=== PATIENT | female | born 1970 | race Caucasian/White ===

== ENCOUNTER → 2019-02-09 07:01 | Outpatient (CLI) | payer BC, SELFPAY ==
[2019-02-09 14:22] LABS: Basophils % 0.3 % (0.1-2.0); Eosinophils # 0.2 K/mm3 (0.0-0.4); Eosinophils % 2.1 % (0.1-12.0); Hematocrit 40.9 % (37.0-47.0); Hemoglobin 13.8 g/dL (12.2-16.2); Lymphocytes # 2.9 K/mm3 (0.7-4.5); Lymphocytes % 32.5 % (10-50); Mean Corpuscular HGB Conc 33.7 g/dL (31.8-35.4); Mean Corpuscular Hemoglobin 31.7 pg (27.0-31.2); Mean Corpuscular Volume 94.1 fl (81-99); Mean Platelet Volume 8.9 fl (7.4-10.4); Monocytes # 0.6 K/mm3 (0.1-1.0); Monocytes % 6.3 % (1.7-9.3); Neutrophils # 5.2 K/mm3 (1.8-7.8); Neutrophils % 58.8 % (37.0-80.0); Platelet Count 219 K/mm3 (142-424); Red Blood Count 4.35 M/mm3 (4.20-5.40); Red Cell Distribution Width 12.1 % (11.5-17.5); White Blood Count 8.9 K/mm3 (4.8-10.8)
[2019-02-09 16:12] LABS: Alanine Aminotransferase 26 U/L (12-78); Albumin Level 3.8 gm/dL (3.4-5.0); Albumin/Globulin Ratio 1.1 (1.1-1.8); Alkaline Phosphatase 62 U/L (46-116); Anion Gap 15.9 mEq/L (5-15); Aspartate Amino Transferase 3 U/L (15-37); Bilirubin,Total 0.4 mg/dL (0.2-1.0); Blood Urea Nitrogen 17 mg/dL (7-18); Carbon Dioxide 24 mmol/L (21.0-32.0); Chloride 104 mmol/L (98-107); Creatinine,Serum 0.67 mg/dL (0.55-1.02); Estimated Glomerular Filt Rate 95 ml/min (>60); GFR (African American) 115 ML/MIN (>60); Globulin 3.6 gm/dl (1.3-3.2); Glucose 91 mg/dL (74-106); Potassium 3.9 mmoL/L (3.5-5.1); Sodium 140 mmol/L (136-145); Thyroid Stimulating Hormone 1.77 uIU/ml (0.358-3.740); Total Protein,Serum 7.4 gm/dL (6.4-8.2)
[2019-02-10 12:44] LABS: Vitamin D 25 Hydroxy 34.6 ng/mL (30.0-100.0)
[2019-02-11 07:24] LABS: Vitamin B12 352 pg/mL (232-1245)
== END ==
PROVIDERS: PCP Nurse Practitioner Family; Visit Provider Nurse Practitioner Family
DX: G62.9 Polyneuropathy, unspecified (principal)
CPT/HCPCS: 36415; 80053; 82607; 82652; 84439; 84443; 85025

== ENCOUNTER → 2019-07-21 11:47 | Outpatient (CLI) | payer BC, SELFPAY ==
--- NOTE | 2019-07-21 11:53 | XR_ITS ---
PROCEDURE: XR LUMBAR SPINE MIN 4V CLINICAL INDICATION: INFLAMMATION B-SI JOINTS, LOW BACK PAIN COMPARISON: No exams were available for comparison FINDINGS: There is minimal lumbar curvature convex left. There is degenerative disc disease present at L5-S1 with decrease in the disc space osteosclerosis and osteophyte formation. Facet arthritic changes are also present at L5 and S1. No fracture or dislocation. The SI joints have an unremarkable appearance. There is an IUD in place IMPRESSION: Degenerative disc disease and facet arthritic change at L5-S1 Dictated by: Willam Aldrich MD 07/21/2019 17:49 Electronically signed by Willam Aldrich MD in [place] 07/21/2019 17:49
--- NOTE | 2019-07-21 11:53 | XR_ITS ---
PROCEDURE: XR SACROILIAC JOINT BI MIN 3V CLINICAL INDICATION: INFLAMMATION B-SI JOINTS, LOW BACK PAIN COMPARISON: No exams were available for comparison FINDINGS: The SI joints have an unremarkable appearance. No sclerosis, fusion, or lytic change is evident. There is an IUD in place. IMPRESSION: Negative SI joints Dictated by: Willam Aldrich MD 07/21/2019 17:52 Electronically signed by Willam Aldrich MD in [place] 07/21/2019 17:52
== END ==
PROVIDERS: PCP Internal Medicine Adolescent Medicine; Visit Provider Internal Medicine Adolescent Medicine
DX: M46.1 Sacroiliitis, not elsewhere classified (principal); M54.5 Low back pain
CPT/HCPCS: 72110; 72202

== ENCOUNTER → 2019-08-16 13:05 | Outpatient (POV) | payer BC, SELFPAY ==
[2019-08-16 13:25] VITALS: BP 120/70; PULSE 81; RESP 18; O2SAT 98; BMI 30.7
--- NOTE | 2019-08-17 10:05 | [facility]H.PMCON ---
Assessment and Plan (1) Sacroiliitis Current visit: Yes Status: Chronic Category: Medical Code(s): M46.1 - Sacroiliitis, not elsewhere classified - Assessment and plan all Dx Assessment and Plan for all problems:: We will see the patient back on an as-needed basis she is getting continue her anti-inflammatories. If she is interested in bilateral SI joint injections we will move forward with this she is good to call us and let us know. Dr. Almaraz has reviewed this note and agrees with this plan of care. This note was dictated using voice recognition software and may contain errors or omissions HPI - Data of Consult Consult date: 08/16/19 Requesting Physician: Symone Layne APRN Primary Care Provider: Casimiro Gama MD - Consult Narrative Reason for consult: Low back pain History of present illness: Ms. Orlando is a 48 year old female Presents today for consultation in regards to her low back pain. Patient is having bilateral SI joint pain. Patient does have a positive Isrrael's test Hugo test and SI joint compression test bilaterally. Patient was put on anti-inflammatories by her PCP which is been helpful for her. Patient and I discussed injection therapy however she would like to hold off on that at this time. We discussed SI joint belt and stretches. Rates her pain today a 3 out of 10. CC: Symone Layne APRN [facility] History I have reviewed the patient's past medical history: Yes Medical History: Denies:: Cancer, Diabetes Mellitus Type 1, Diabetes Mellitus Type 2, MRSA *Have you ever received a pneumonia vaccine?: Yes *Have you received a flu vaccine this season?: Yes Other Surgeries: Yes: Other Amputation: No Fractures: No - *Social History Smoking Status: Never smoker Alcohol Intake: never *Occupational Status:: other Housing: house Household Members: spouse *Travel in the last 8 weeks: None Family Hx:: Unable to obtain Review of Systems - Review of Systems ROS General: no recent weight change, no fever, no sleep disturbances Respiratory: no cough, no shortness of air, no recurring pulmonary infections Cardiovascular/Peripheral Vascular: No chest pain, No palpitations, no edema, no shortness of breath. Gastrointestinal: no new onset incontinence, normal bowel movements reported Genitourinary: no new onset incontinence Musculoskeletal: SI joint pain Psychiatric: normal mood/ affect Neurological: [denies new onset weakness in extremities], [denies new onset balance issues] Objective Vital signs: Pulse Resp BP Pulse Ox 81 18 120/70 98 08/16/19 13:25 08/16/19 13:25 08/16/19 13:25 08/16/19 13:25 Narrative: Physical Exam General: Alert and oriented x3, no acute distress, pleasant and cooperative, [on room air] Lungs: Resps E/U, Symmetrical chest expansion, Eyes: PERRL Musculoskeletal: Flexion and extension of lumbar spine somewhat guarded secondary to pain, deep tendon reflexes normal, strength in upper and lower extremities 5/5, slightly antalgic gait noted Neurological: speech clear, market development specialist equal, no gross sensory deficits Opioid Risk Tool - Opioid Risk Tool-Female Family hx alcohol abuse: N Family hx illegal drugs: N Family hx rx drug abuse: N Personal hx alcohol abuse: N Personal hx illegal drugs: N Personal hx rx drug abuse: N Age: 45+ Hx of sexual abuse: N Mental health issues-ADD,OCD,Bipolar, etc: N Hx of depression: N Female Risk Score: 0
--- NOTE | 2019-08-17 10:14 | P.CONS_ITS ---
Assessment and Plan (1) Sacroiliitis Current visit: Yes Status: Chronic Category: Medical Code(s): M46.1 - Sacroiliitis, not elsewhere classified - Assessment and plan all Dx Assessment and Plan for all problems:: We will see the patient back on an as-needed basis she is getting continue her anti-inflammatories. If she is interested in bilateral SI joint injections we will move forward with this she is good to call us and let us know. Dr. Almaraz has reviewed this note and agrees with this plan of care. This note was dictated using voice recognition software and may contain errors or omissions HPI - Data of Consult Consult date: 08/16/19 Requesting Physician: Symone Layne APRN Primary Care Provider: Casimiro Gama MD - Consult Narrative Reason for consult: Low back pain History of present illness: Ms. Orlando is a 48 year old female Presents today for consultation in regards to her low back pain. Patient is having bilateral SI joint pain. Patient does have a positive Isr[place]'s test Hugo test and SI joint compression test bilaterally. Patient was put on anti-inflammatories by her PCP which is been helpful for her. Patient and I discussed injection therapy however she would like to hold off on that at this time. We discussed SI joint belt and stretches. Rates her pain today a 3 out of 10. CC: Symone Layne APRN [facility] History I have reviewed the patient's past medical history: Yes Medical History: Denies:: Cancer, Diabetes Mellitus Type 1, Diabetes Mellitus Type 2, MRSA *Have you ever received a pneumonia vaccine?: Yes *Have you received a flu vaccine this season?: Yes Other Surgeries: Yes: Other Amputation: No Fractures: No - *Social History Smoking Status: Never smoker Alcohol Intake: never *Occupational Status:: other Housing: house Household Members: spouse *Travel in the last 8 weeks: None Family Hx:: Unable to obtain Review of Systems - Review of Systems ROS General: no recent weight change, no fever, no sleep disturbances Respiratory: no cough, no shortness of air, no recurring pulmonary infections Cardiovascular/Peripheral Vascular: No chest pain, No palpitations, no edema, no shortness of breath. Gastrointestinal: no new onset incontinence, normal bowel movements reported Genitourinary: no new onset incontinence Musculoskeletal: SI joint pain Psychiatric: normal mood/ affect Neurological: [denies new onset weakness in extremities], [denies new onset balance issues] Objective Vital signs: Pulse Resp BP Pulse Ox 81 18 120/70 98 08/16/19 13:25 08/16/19 13:25 08/16/19 13:25 08/16/19 13:25 Narrative: Physical Exam General: Alert and oriented x3, no acute distress, pleasant and cooperative, [on room air] Lungs: Resps E/U, Symmetrical chest expansion, Eyes: PERRL Musculoskeletal: Flexion and extension of lumbar spine somewhat guarded secondary to pain, deep tendon reflexes normal, strength in upper and lower extremities 5/5, slightly antalgic gait noted Neurological: speech clear, 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
== END ==
PROVIDERS: PCP Internal Medicine Adolescent Medicine; Visit Provider Clinical Nurse Specialist Family Health
DX: M46.1 Sacroiliitis, not elsewhere classified (principal)
CPT/HCPCS: 99202